=== PATIENT | female | born 1975 | race Caucasian/White ===

== ENCOUNTER 2017-07-29 05:55 | Inpatient (IN) | payer MEDICAID ==
[~2017-07-29] VITALS: Ht 144.8 cm; Wt 88.7 kg
[2017-07-29 06:23] VITALS: Ht 144.8 cm; Wt 88.7 kg
[2017-07-29] MEDS ORDERED: PREN1TAB79 PO (06:24)
[2017-07-29] MEDS ORDERED: FOLI-49 PO (06:24)
[2017-07-29] MEDS ORDERED: OXYCODONE/ASPIRIN (4.88/325) TAB PO PRN (06:30)
[2017-07-29] MEDS ORDERED: CARBOPROST 250 MCG INJ IM PRN (06:30)
[2017-07-29] MEDS ORDERED: OXYTOCIN 30 UNITS/LR 500 ML IV SCH ×2 (06:30)
[2017-07-29] MEDS ORDERED: METHYLERGONOVINE 0.2 MG INJ IM PRN (06:30)
[2017-07-29] MEDS ORDERED: LIDOCAINE 1% (MPF) 30 ML INJ INJ PRN (06:30)
[2017-07-29] MEDS ORDERED: MISOPROSTOL 200 MCG TAB PR PRN (06:30)
[2017-07-29] MEDS ORDERED: OXYTOCIN 30 UNITS/LR 500 ML IV PRN (06:30)
[2017-07-29] MEDS ORDERED: LACTATED RINGER'S 1,000 ML IV PRN (06:30)
[2017-07-29] MEDS ORDERED: BUTORPHANOL 2 MG INJ IV PRN (06:30)
[2017-07-29] MEDS ORDERED: IBUPROFEN 600 MG TAB PO PRN (06:30)
[2017-07-29] MEDS ORDERED: AMPICILLIN 2 GM/NS (PMX) 100 ML IV ONE (06:40)
[2017-07-29] MEDS: LACTATED RINGER'S 1,000 ML IV SCH ×2 (06:46→15:37)
--- NOTE | 2017-07-29 09:02 | RADRPT ---
PROCEDURE: US OB. CLINICAL INDICATION: Post dates. Large for gestational age. TECHNIQUE: Multiple sonographic images of the uterus were obtained. The images were revi ewed on a PACS workstation. COMPARISON: No prior studies are available for comparison. FINDINGS: There is a single live intrauterine gestation. heart rate is 154 beats per minute. Measurements were made in order to determine age. The results are as follows: BPD = 9.35 cm. HC = 33.55 cm. AC = 37.02 cm. FL = 7.56 cm. Estimated weight is 3193 +/- 584 grams. LMP growth percentile is 63 %. Menstrual age by ultrasound dates is 39 weeks 0 days. The estimated date of delivery is 08/05/2017. Amniotic fluid index is 5.3 cm. Position is cephalic and placenta is anterior grade II. There is no evidence for an abruption or mohinder centa previa. IMPRESSION: 1. Single live intrauterine gestation of 39 weeks 0 days menstrual age by ultrasound dates. 2. The estimated date of delivery is 08/05/2017. RPTAT: QQ .Froilan Guardado MD, MD Date Time Electronically viewed and signed by .Froilan Guardado MD, on 07/29/2017 09:02 .R/
[2017-07-29] MEDS: AMPICILLIN 1 GM/NS (PMX) 50 ML IV SCH ×4 (10:55→23:04)
[2017-07-29] MEDS: OXYTOCIN 30 UNITS/LR 500 ML IV SCH ×2 (12:07→23:59)
[2017-07-29] MEDS ORDERED: DEXTROSE 5%-LR 1,000 ML IV PRN (23:30)
[2017-07-30] MEDS: LACTATED RINGER'S 1,000 ML IV SCH ×3 (01:16→15:26)
[2017-07-30] MEDS: AMPICILLIN 1 GM/NS (PMX) 50 ML IV SCH ×5 (02:58→18:30)
[2017-07-30] MEDS ORDERED: FENTAnyl 2MCG/ML-ROPIV 0.2% 100 ML ONE ×2 (05:46→15:22)
--- NOTE | 2017-07-30 06:26 | HP ---
Date/Time of Note Date/Time of Note DATE: 07/30/17 TIME: 06:23 OB - History Hx of Present Free Text/Dictation Patient with positive was sent for induction of labor : 3 Para: 1 Therapeutic : 0 Care: Good Care Obstetrical Complications: Gestational Diabetes, Other (, Postdate elevated 1 hour PG. Repeat 3 hours showed 1 value elevated consistent with GDM. Random blood sugar normal.) Medical Complications: None Past Family/Social History * Past Medical, Surgical, Family and Obstetric Histories reviewed from chart. OB Admission Exam Physical Exam HEENT: WNL Lungs: Clear Abdomen: WNL Extremities: Normal Cervical Dilatation: 2cm Effacement: 75% Station: -2 Membranes: Intact Heart Rate: 130's Accelerations: Accelerations Present Decelerations: No Decelerations Varibility: Moderate Contractions on Admission: >10 Minutes Apart Intensity: Moderate Last 72 hourBlood Glucose Bedside Glucose - 72 Hours Test 07/30/17 01:46 Bedside Glucose 79mg/dL (70-220) Last 72 hours Lab Results CBC & BMP 07/29/17 06:45 07/29/17 21:44 Hemoglobin A1C Test 07/29/17 21:44 Hemoglobin A1c 5.9 OB Assessment/Plan Other Assessment: IUP at 40 weeks and 5 days Positive Admitted for induction On Pitocin Early labor We will continue Pitocin Anticipate GBS positive, receiving Abx CELESTINO LEVY MD Jul 30, 2017 06:26
[2017-07-30] MEDS ORDERED: OXYTOCIN 30 UNITS/LR 500 ML BAG IV ONE (07:00)
[2017-07-30] MEDS ORDERED: OXYTOCIN 30 UNITS/LR 500 ML IV SCH (14:00)
--- NOTE | 2017-07-30 15:27 | QN ---
Documentation Comment progress note patient seen and evaluated no complaints vs stable afebrile abdomen gravid nt extremity no edema no calf tenderness ve fd/100/-1 srom positive meconium fhr cat 1 toco regular ctx a/ iup at 40 plus weeks ga, admitted for post edc induction with pitocin p/ expectant vaginal delivery KARLOS BOGGS MD Jul 30, 2017 15:27
[2017-07-30] MEDS: CEFAZOLIN 2 GM/50 ML (PMX) 50 ML IV SCH ×3 (17:51→23:30)
[2017-07-30] MEDS ORDERED: morphine SULFATE/PF (10 MG/10 ML) INJ ONE (17:52)
[2017-07-30] MEDS ORDERED: PHENYLephrine (100 MCG/ML) 5ML SYG ONE ×4 (17:59→20:33)
[2017-07-30] MEDS ORDERED: ONDANSETRON 4 MG INJ ONE (17:59)
[2017-07-30] MEDS ORDERED: OXYTOCIN 10 UNIT INJ ONE (18:00)
[2017-07-30] MEDS ORDERED: FENTAnyl 50 MCG/ML VIAL ONE ×2 (18:31→18:52)
[2017-07-30] MEDS ORDERED: KETAMINE 500 MG INJ ONE (19:05)
[2017-07-30] MEDS ORDERED: METHYLENE BLUE 1% 10 ML INJ ONE (19:19)
[2017-07-30] MEDS ORDERED: MIDAZOLAM 1 MG/ML 2 ML INJ ONE (20:23)
--- NOTE | 2017-07-30 21:09 | SIPON ---
Date/Time of Note Date/Time of Note DATE: 07/30/17 TIME: 21:01 Operative Report Preoperative Diagnosis 41 yo iup at 40 wks 5 days ga, in labor, arrest in descent, positive meconium, advanced maternal age Postoperative Diagnosis Same Operation/Procedure Performed primary low transverse CD, with lower uterine laceration repair Surgeon Karlos Reeves MD machine assistant Dr. Cotton, Second assist: RENALDO KIM MD Anesthesia: spinal Estimated blood loss: other (2,000) Transfusion Required 3 units PRBC and 2 unit FFP Specimen None Grafts/Implants none Complications Laceration extention of right lower uterine incision parallel to the round ligament KARLOS BOGGS MD Jul 30, 2017 21:09
--- NOTE | 2017-07-30 21:09 | SIPON ---
Date/Time of Note Date/Time of Note DATE: 07/30/17 TIME: 21:01 Operative Report Preoperative Diagnosis 41 yo iup at 40 wks 5 days ga, in labor, arrest in descent, positive meconium, advanced maternal age Postoperative Diagnosis Same Operation/Procedure Performed primary low transverse CD, with lower uterine laceration repair Surgeon Karlos Reeves MD district administrative assistant Dr. Cotton, Second assist: RENALDO KIM MD Anesthesia: spinal Estimated blood loss: other (2,000) Transfusion Required 3 units PRBC and 2 unit FFP Specimen None Grafts/Implants none Complications Laceration extention of right lower uterine incision parallel to the round ligament KARLOS BOGGS MD Jul 30, 2017 21:09
--- NOTE | 2017-07-30 21:09 | SIPON ---
Date/Time of Note Date/Time of Note DATE: 07/30/17 TIME: 21:01 Operative Report Preoperative Diagnosis 41 yo iup at 40 wks 5 days ga, in labor, arrest in descent, positive meconium, advanced maternal age Postoperative Diagnosis Same Operation/Procedure Performed primary low transverse CD, with lower uterine laceration repair Surgeon Karlos Reeves MD ob gyn physician assistant Dr. Cotton, Second assist: RENALDO KIM MD Anesthesia: spinal Estimated blood loss: other (2,000) Transfusion Required 3 units PRBC and 2 unit FFP Specimen None Grafts/Implants none Complications Laceration extention of right lower uterine incision parallel to the round ligament KARLOS BOGGS MD Jul 30, 2017 21:09
--- NOTE | 2017-07-30 21:10 | RADRPT ---
PROCEDURE: XR Abdomen. CLINICAL INDICATION: Postoperative. Possible retained instrument. TECHNIQUE: AP abdomen x-ray. COMPARISON: None. FINDINGS: Bladder catheter is present. Linear wire overlies the parasagittal left aspect of the abdomen on cou rse of the aorta. No instruments, retained sponges or needles are identified.. There is no evidence of obstruction or ileus. There are no abnormal calcifications. The osseus structures are unremark able. IMPRESSION: Bladder catheter. Linear wire overlying the left of midline of the abdomen, likely on the patient. N o definite radiopaque foreign body to suggest a retained sponge or instrument. RPTAT: HMVK .Jeremy Holder MD, MD Date Time Electronically viewed and signed by .Jeremy Holder MD, on 07/30/2017 21:10 .K/
[2017-07-30] MEDS ORDERED: MISOPROSTOL 200 MCG TAB PR PRN (21:30)
[2017-07-30] MEDS ORDERED: LANOLIN 7 GM TUBE TOP PRN (21:30)
[2017-07-30] MEDS ORDERED: METHYLERGONOVINE 0.2 MG INJ IM PRN (21:30)
[2017-07-30] MEDS ORDERED: CARBOPROST 250 MCG INJ IM PRN (21:30)
[2017-07-30] MEDS ORDERED: OXYTOCIN 30 UNITS/LR 500 ML IV PRN (21:30)
[2017-07-30 21:38] VITALS: PULSE 97
[2017-07-30 22:00] VITALS: BP 96/73; PULSE 106; RESP 14
[2017-07-30 22:30] VITALS: BP 105/80; PULSE 124; RESP 14
[2017-07-30 23:00] VITALS: BP 93/70; PULSE 136; RESP 14
[2017-07-30] MEDS: OXYCODONE/ACETAMINOPHEN (5/325) TAB PO PRN (23:04)
[2017-07-30 23:30] VITALS: BP 99/65; PULSE 143; RESP 13
[2017-07-31] VITALS (47 sets, daily range): BP systolic 88–135; BP diastolic 66–108; PULSE 111–151; RESP 12–28
[2017-07-31] MEDS ORDERED: OXYCODONE/ACETAMINOPHEN (5/325) TAB PO PRN ×2
[2017-07-31] MEDS ORDERED: morphine 2 MG INJ IV PRN
[2017-07-31] MEDS ORDERED: ONDANSETRON 4 MG INJ IV PRN
[2017-07-31] MEDS ORDERED: DIPHENHYDRAMINE 50 MG INJ IV PRN
[2017-07-31] MEDS ORDERED: NALOXONE (0.4 MG/ML) INJ IV PRN
[2017-07-31] MEDS ORDERED: morphine 4 MG/ML VIAL IV PRN
[2017-07-31] MEDS: LACTATED RINGER'S 1,000 ML IV SCH ×4 (00:04→16:28)
--- NOTE | 2017-07-31 03:32 | CONS ---
Date/Time of Note Date/Time of Note DATE: 07/31/17 TIME: 03:13 Assessment/Plan Assessment/Plan Chief Complaint/Hosp Course This is a 41F now s/p emergent admitted to the icu floor for: #1 Acute blood loss: patient lost approximately 2000cc of blood during her OB procedure. She received 3 PRBCs and 2 FFPs with her hgb beling 8.3 post transfusion. On admission it was 12.9. At the current time I will give her 2 units PRBCs and recheck hgb after transfusion. We will continue to monitor her crane output. If her hematuria persists we will need further evaluation by ob/ urology. We will follow with you. #2Tachycardia: secondary to #1. Continue blood transfusions and volume resuscitation. #3 : continue routine care as per real estate sales manager. # dvt and gi prophylaxis. SCDs, ppi Problems: Consultation Date/Type/Reason Admit Date/Time Jul 29, 2017 at 05:55 Date of Consultation: Jul 31, 2017 Type of Consultation: medicine Reason for Consultation medical management Hx of Present Illness CC: elective induction This is a 41 year old female now s/p emergency secondary to arrest of labor. Patient was admitted for elective induction of labor and was proceeding as expected. However there was arrest in descent and an emergent low transverse was performed. There was approximately 2000cc of blood loss. Alsothere was a laceration extention of the right lower uterine incision parallel to the round ligament. She was given 3 PRBCS and 2 FFPs. Patient was subsequently transferred to the ICU for closer monitor and higher level of care. At bedside patient is currently laying in bed in no acute distress. She states she is exhausted. HR 136 with BP of 101/77. She denies any chest pain or sob. There is also dark blood noted in in her crane catheter. allergies: nkda meds: none Const: Fatigue Eyes : No pain discharge or redness or change in visual acuity ENT: No pain, sore throat, congestion, congestion, dysphagia or discharge Respiratory: No shortness of breath, cough, sputum, wheezing, or pleuritic pain Cardiovascular: No chest pain, palpitation, PND, or edema GI : Pain at surgical site status post Genitourinary: No dysuria, hematuria, flank pain , discharge or CVA tenderness Musculoskeletal: No joint pain, back pain, neck pain, restricted range of motion in neck or joints Skin: No rash, bruising or hives Neuro: No headache, dizziness, syncope, seizure, focal weakness Endocrine: No polyuria, polydipsia, temperature intolerance Psych: No hallucination, depression, anxiety or suicidal ideation Past Medical History Medical History: no pertinent history Past Surgical History x 1 (07/30/2017) Family History Significant Family History: no pertinent family hx Social History Alcohol Use: none Smoking Status: Never smoker Drug Use: none Exam/Review of Systems Vital Signs Vitals Vital Signs Date Time Temp Pulse Resp B/P Pulse Ox O2 Delivery O2 Flow Rate FiO2 07/31/17 03:00 139 16 102/76 100 Nasal Cannula 2.0 07/31/17 00:00 98.1 Intake and Output 07/30/17 07/30/17 07/31/17 15:00 23:00 07:00 Intake Total 1060.5 ml 650 ml 550 ml Output Total 775 ml 515 ml 60 ml Balance 285.5 ml 135 ml 490 ml Exam General: Patient is lying in bed states she feels tired but in no acute distress HEENT: Atraumatic, normocephalic. The pupils are equal, round and reactive. Extraocular motor are intact Neck: Supple with full range of motion. No rigidity or meningismus Chest: Nontender Lungs: Clear to auscultation bilaterally no crackles rales or wheezing Heart: Normal S1-S2, Regular rhythm and rate. No murmur, S3, or S4 Abdomen: Soft, tender to palpation around the surgical incision site of her C- section, no active bleeding noted from the surgical dressing, dressing clean dry and intact. Extremities: Normal to inspection, no edema no cyanosis Neurologic: Normal mental status, speech normal, cranial nerves II through XII are intact, motor and sensory are intact, no focal weakness Genitourinary: Patient's Crane catheter does appear to have dark blood. Results Result Diagram: 07/31/17 0030 07/29/17 2144 Results 24 hrs Laboratory Tests Test 07/30/17 06:22 07/30/17 08:28 07/30/17 12:43 07/30/17 15:01 Bedside Glucose 86 80 74 86 Test 07/31/17 00:30 Hemoglobin 8.3 #L Hematocrit 24.8 #L Medications Medications Current Medications Lactated Ringer's 1,000 ml @ 125 mls/hr Q8H IV Last administered on 07/31/17 00:04; Admin Dose 125 MLS/HR; Start 07/30/17 at 21:12 Cefazolin Sodium/ Dextrose (Ancef 2 Gm/50 ml (Pmx)) 50 ml @ 100 mls/hr Q8H IV Last administered on 07/30/17 23:30; Admin Dose 100 MLS/HR; Start 07/30/17 at 21:30; Stop 07/31/17 at 13:59 Oxycodone/ Acetaminophen (Percocet (5/ 325)) 1 tab Q4H PRN PO PAIN LEVEL 4-6; Start 07/30/17 at 21:30 Oxycodone/ Acetaminophen (Percocet (5/ 325)) 2 tab Q4H PRN PO PAIN LEVEL 7-10 Last administered on 07/30/17 23:04; Admin Dose 2 TAB; Start 07/30/17 at 21:30 Simethicone (Mylicon) 160 mg Q8H PRN PO DISTENSION/GAS/BLOATING; Start at 21:30 Senna/Docusate Sodium 1 tab 1 tab BID PO ; Start 07/31/17 at 09:00 Oxytocin/Lactated Ringer's 500 ml @ 0 mls/hr ONCE PRN IV For Hemorrhage Management; Start 07/30/17 at 21:30 Methylergonovine Maleate (Methergine) 0.2 mg ONCE PRN IM VAGINAL BLEEDING; Start 07/30/17 at 21:30 Carboprost Tromethamine (Hemabate) 250 mcg ONCE PRN IM VAGINAL BLEEDING; Start 07/30/17 at 21:30 Misoprostol (Cytotec) 1,000 mcg ONCE PRN CO VAGINAL BLEEDING; Start 07/30/17 at 21:30 Naloxone HCl (Narcan) 0.1 mg Q2M PRN IV FOR RESP RATE 8 OR LESS; Start at 00:00; Stop 07/31/17 at 17:44 Morphine Sulfate (morphine) 2 mg Q3H PRN IV PAIN LEVEL 1-5; Start 07/31/17 at 00:00; Stop 07/31/17 at 17:44 Morphine Sulfate (morphine) 4 mg Q3H PRN IV PAIN LEVEL 6-10; Start 07/31/17 at 00:00; Stop 07/31/17 at 17:44 Diphenhydramine HCl (Benadryl) 25 mg Q6H PRN IV ITCHING; Start 07/31/17 at 00: 00; Stop 07/31/17 at 17:44 Ondansetron HCl (Zofran Inj) 4 mg Q6H PRN IV NAUSEA AND/OR VOMITING Last administered on 07/31/17t 00:01; Admin Dose 4 MG; Start 07/31/17 at 00:00; Stop 07/31/17 at 17:44 GAMAL MAXWELL Jul 31, 2017 03:25
[2017-07-31] MEDS ORDERED: PANTOPRAZOLE 40 MG INJ IV SCH (04:00)
--- NOTE | 2017-07-31 05:35 | QN ---
Documentation Comment Progress note postoperative day 1 Patient seen and evaluated awake alert oriented 3 No complaints Vital signs pulse 118 respirations 16 blood pressure 100/74 pulse oximetry 96% Input 2510 output 1440 Lungs CTA bilateral CVS positive S1-S2 regular rhythm Abdomen soft appropriate tenderness no distention dressing clean dry Extremity negative edema no calf tenderness Vaginal exam no active bleeding Bishop blood-tinged Assessment status post primary delivery with lower uterine extension laceration repair, acute blood loss currently in ICU receiving her total 6 units of packed RBC Plan continue present management consider transfer to if stable and improving KARLOS BOGGS MD Jul 31, 2017 05:35
[2017-07-31] MEDS: OXYCODONE/ACETAMINOPHEN (5/325) TAB PO PRN (05:42)
[2017-07-31] MEDS ORDERED: FUROSEMIDE 20 MG INJ IV ONE (07:30)
[2017-07-31] MEDS: CEFAZOLIN 2 GM/50 ML (PMX) 50 ML IV SCH ×2 (08:30→13:20)
[2017-07-31] MEDS: SENNA/DOCUSATE NA (8.6MG/50MG) TAB PO SCH ×2 (08:31→21:32)
--- NOTE | 2017-07-31 09:44 | CONS ---
Date/Time of Note Date/Time of Note DATE: 07/31/17 TIME: 09:37 Assessment/Plan Assessment/Plan Chief Complaint/Hosp Course 41F s/o emergent was admitted to ICU for acute blood loss anemia Problems: Additional Assessment/Plan 1. Acute blood loss anemia secondary to laceration extension of right lower uterine incision - s/p PRBC - H/H stable this am, 9.8 - Hematuria improving - No signs of active bleeding - Continue monitoring H/H - laceration management per OB 2. Tachycardia - Denies any symptoms - BP stable - May be secondary to dehydration/blood loss - IVF running - Metoprolol PRN for HR >110 3. Hyperkalemia - Received dose of Lasix this am - Repeat BMP ordered for noon 4. - care as per primary team, OB 5. Disposition - Monitor in ICU - if no further episodes of bleeding and HR better controlled (<100), can be transferred out of ICU Thank you for the consultation. Please call with questions Consultation Date/Type/Reason Admit Date/Time Jul 29, 2017 at 05:55 Initial Consult Date 07/31/17 Type of Consultation: medicine Reason for Consultation anemia management 24 HR Interval Summary Constitutional: improved, other (pain at incision site, thirsty) Exam/Review of Systems Vital Signs Vitals Vital Signs Date Time Temp Pulse Resp B/P Pulse Ox O2 Delivery O2 Flow Rate FiO2 07/31/17 09:00 130 16 122/85 97 Room Air 07/31/17 08:00 98.4 07/31/17 07:00 2.0 Intake and Output 07/30/17 07/30/17 07/31/17 15:00 23:00 07:00 Intake Total 1060.5 ml 650 ml 1050 ml Output Total 775 ml 515 ml 210 ml Balance 285.5 ml 135 ml 840 ml Exam Constitutional: alert, oriented, well developed, No distress Psych: nl mood/affect Head: atraumatic, normocephalic Eyes: EOMI, PERRL, nl sclera ENMT: mucosa pink and moist Neck: non-tender, supple Respiratory: clear to auscultation, normal air movement, No crackles/rales, No wheezing Cardiovascular: other (tachycardia, normal rhythm), No diastolic murmur, No systolic murmur Gastrointestinal: other (surgical dressing, clean dry), soft, No rebound or guarding Musculoskeletal: nl extremities to inspection Extremities: normal pulses Neurological: PROFESSIONAL EMPLOYER CONSULTANT II-XII intact, nl mental status, nl speech Skin: nl turgor Lymph: nl lymph nodes Results Result Diagram: 07/31/17 0550 07/31/17 0550 Results 24 hrs Laboratory Tests Test 07/30/17 12:43 07/30/17 15:01 07/31/17 00:30 07/31/17 04:59 Bedside Glucose 74 86 Hemoglobin 8.3 #L Hematocrit 24.8 #L Lab Scanned Report BLOOD TRANSFUSION Test 07/31/17 05:50 White Blood Count 14.5 #H Red Blood Count 3.20 #L Hemoglobin 9.8 L Hematocrit 29.8 #L Mean Corpuscular Volume 93.1 Mean Corpuscular Hemoglobin 30.6 Mean Corpuscular Hemoglobin Concent 32.9 Red Cell Distribution Width 14.8 H Platelet Count 160 # Mean Platelet Volume 10.2 Neutrophils % 85.1 H Lymphocytes % 9.3 L Monocytes % 5.0 Eosinophils % 0.0 Basophils % 0.1 Nucleated Red Blood Cells % 0.0 Neutrophils # 12.3 H Lymphocytes # 1.3 Monocytes # 0.7 Eosinophils # 0.0 Basophils # 0.0 Nucleated Red Blood Cells # 0.0 Sodium Level 142 Potassium Level 5.6 H Chloride Level 110 Carbon Dioxide Level 18 L Anion Gap 20 H Blood Urea Nitrogen 15 Creatinine 1.05 H Glucose Level 135 Calcium Level 7.8 L Medications Medications Current Medications Lactated Ringer's 1,000 ml @ 125 mls/hr Q8H IV Last administered on 07/31/17 08:31; Admin Dose 125 MLS/HR; Start 07/30/17 at 21:12 Cefazolin Sodium/ Dextrose (Ancef 2 Gm/50 ml (Pmx)) 50 ml @ 100 mls/hr Q8H IV Last administered on 07/31/17 08:30; Admin Dose 100 MLS/HR; Start 07/30/17 at 21:30; Stop 07/31/17 at 13:59 Oxycodone/ Acetaminophen (Percocet (5/ 325)) 1 tab Q4H PRN PO PAIN LEVEL 4-6; Start 07/30/17 at 21:30 Oxycodone/ Acetaminophen (Percocet (5/ 325)) 2 tab Q4H PRN PO PAIN LEVEL 7-10 Last administered on 07/31/17 05:42; Admin Dose 2 TAB; Start 07/30/17 at 21:30 Simethicone (Mylicon) 160 mg Q8H PRN PO DISTENSION/GAS/BLOATING; Start at 21:30 Senna/Docusate Sodium 1 tab 1 tab BID PO Last administered on 07/31/17 08:31; Admin Dose 1 TAB; Start 07/31/17 at 09:00 Oxytocin/Lactated Ringer's 500 ml @ 0 mls/hr ONCE PRN IV For Hemorrhage Management; Start 07/30/17 at 21:30 Methylergonovine Maleate (Methergine) 0.2 mg ONCE PRN IM VAGINAL BLEEDING; Start 07/30/17 at 21:30 Carboprost Tromethamine (Hemabate) 250 mcg ONCE PRN IM VAGINAL BLEEDING; Start 07/30/17 at 21:30 Misoprostol (Cytotec) 1,000 mcg ONCE PRN IA VAGINAL BLEEDING; Start 07/30/17 at 21:30 Naloxone HCl (Narcan) 0.1 mg Q2M PRN IV FOR RESP RATE 8 OR LESS; Start at 00:00; Stop 07/31/17 at 17:44 Morphine Sulfate (morphine) 2 mg Q3H PRN IV PAIN LEVEL 1-5; Start 07/31/17 at 00:00; Stop 07/31/17 at 17:44 Morphine Sulfate (morphine) 4 mg Q3H PRN IV PAIN LEVEL 6-10; Start 07/31/17 at 00:00; Stop 07/31/17 at 17:44 Diphenhydramine HCl (Benadryl) 25 mg Q6H PRN IV ITCHING; Start 07/31/17 at 00: 00; Stop 07/31/17 at 17:44 Ondansetron HCl (Zofran Inj) 4 mg Q6H PRN IV NAUSEA AND/OR VOMITING Last administered on 07/31/17 00:01; Admin Dose 4 MG; Start 07/31/17 at 00:00; Stop 07/31/17 at 17:44 Pantoprazole (Protonix Iv) 40 mg DAILY@06 IV Last administered on 07/31/17 04: 57; Admin Dose 40 MG; Start 07/31/17 at 04:00 Metoprolol Tartrate (Lopressor) 5 mg Q6H PRN IV HR >110; Start 07/31/17 at 09: 30 ELINOR KINGSLEY MD Jul 31, 2017 09:44
[2017-07-31] MEDS: METOPROLOL 5 MG INJ IV PRN ×2 (10:10→16:27)
--- NOTE | 2017-07-31 10:41 | OPR ---
DATE OF OPERATION: 07/30/2017 PRIMARY DIAGNOSIS: A 41-year-old 3, para 2, intrauterine at 40 weeks and 5 days g estational age, in labor, arrest in descent, positive meconium, advanced maternal age. POSTOPERATIVE DIAGNOSIS: A 41-year-old 3, para 2, intrauterine at 40 weeks and 5 days gestational age, in labor, arrest in descent, positive meconium, advanced maternal age. PROCEDURE: Primary low transverse section via Pfannenstiel incision with repair of the low er uterine laceration. SURGEON: Jeremy Barrios MD. CO-SURGEONS/INTRAOPERATIVE CONSULT: Dr. Allen Reeves. TEST CENTER ADMINISTRATOR: /Jeffery Kim MD ANESTHESIA: Epidural. COMPLICATIONS: Laceration extension of the right lower uterine incision parallel to the round ligam ent. INDICATIONS: A 41-year-old 3, para 2, intrauterine at 40 weeks and 5 days gestati onal age, admitted for post-EDC induction with Pitocin, went into labor, however head arrest i n descent. FINDINGS: A viable female, 8 and 9 respectively at 1 and 5 minutes, weight 8 pounds 9 ounces, in OP presentation. Positive meconium noted. NICU team present at delivery. Normal uterus, tubes and ovaries. PROCEDURE: After explaining the risks, benefits and alternatives to patient and consent signed in c gibbs, the patient was taken to the operating room where epidural anesthesia was found to be adequate . She was then prepared and draped in normal sterile fashion in dorsal supine position with a leftw tresa tilt. A Pfannenstiel skin incision was then made with a scalpel and carried to the underlying l wanda of the fascia. The fascia was incised in the midline and the incision was extended laterally w ith Murillo scissors. The superior aspect of the fascial incision was grasped with curved clamps, elev ated and the underlying rectus muscles dissected off bluntly. Attention was then turned to the infe rior aspect of the incision which in similar fashion was grasped, tented up with curved clamps and t he rectus muscles dissected off bluntly. The rectus muscles were then in midline, periton eum identified, tented up and entered sharply with Metzenbaum scissors. The peritoneal incision was then extended superiorly relation of the bladder. The bladder blade was then inserted and th e vesicouterine peritoneum identified, grasped with pickups and entered sharply with Metzenbaum julisas sors. This incision was then extended laterally and the bladder flap created digitally. The bladde r blade was then reinserted and the lower uterine segment incised in transverse fashion with a scalp el. The uterine incision was then extended laterally. The bladder blade was removed and the 's head was delivered atraumatically. The nose and mouth were suctioned and cord clamped and cut. The placenta was then removed. The uterus exteriorized, cleared of all clots and debris. The uteri ne incision was repaired with 1-0 Monocryl in a running locked fashion. A second layer of same sutu re was used for imbrication obtaining excellent hemostasis. Due to the complexity of the case, intr aoperative consult was called with Dr. Allen Reeves for repair of the extension of laceration of t he lower uterine incision. The repair was performed by Dr. Allen Reeves. Good hemostasis was ass ured. Patient at the time, secondary to acute blood loss, received a total of 4 units of packed RBC s and 2 units of fresh frozen plasma. Methylene blue was injected via the Bishop for the integrity o f the bladder. There was no leakage. At that point, the gutters were cleared of all clots. The re ctus abdominis muscles were reapproximated with 3-0 Vicryl in interrupted fashion. The fascia was r eapproximated with 0 Vicryl in a running fashion. The subcutaneous tissue was reapproximated with 2 -0 plain gut in a running fashion. The skin was closed with absorbable monika. The patient tolera josephine the procedure well. Sponge, lap and needle counts were correct x2. For confirmation, patient a lso had pelvic x-ray. The patient was taken to ICU for continued observation secondary to acute blo od loss, a total of 2000 mL. Dictated By: JEREMY ALEXANDER/MAURICIO Conf#: [id number] DID#: [id number]
[2017-08-01] VITALS (12 sets, daily range): BP systolic 117–154; BP diastolic 67–90; PULSE 94–120; RESP 18–20
[2017-08-01] MEDS: OXYCODONE/ACETAMINOPHEN (5/325) TAB PO PRN ×3 (02:27→20:49)
[2017-08-01] MEDS: LACTATED RINGER'S 1,000 ML IV SCH ×3 (04:55→21:12)
[2017-08-01] MEDS: SENNA/DOCUSATE NA (8.6MG/50MG) TAB PO SCH ×2 (09:07→20:36)
[2017-08-01] MEDS: METOPROLOL 25 MG TAB PO SCH ×2 (11:01→20:36)
--- NOTE | 2017-08-01 13:36 | CONS ---
Date/Time of Note Date/Time of Note DATE: 08/01/17 TIME: 13:32 Assessment/Plan Assessment/Plan Chief Complaint/Hosp Course 41F s/o emergent was admitted to ICU for acute blood loss anemia Problems: Additional Assessment/Plan 1. Acute blood loss anemia secondary to laceration extension of right lower uterine incision - s/p PRBC - H/H 7.1 this am and repeat at 1500 ordered. ?if patient having any internal bleeding. No ronny bleeding appreciated - Continue monitoring H/H - laceration management per OB 2. Tachycardia - Denies any symptoms - BP stable - May be secondary to dehydration/blood loss - IVF running - Started on metoprolol PO and will wean off if possible prior to discharge - Metoprolol PRN for HR >110 3. - care as per primary team, OB 4. Disposition - patients tachycardia asymptomatic and can be monitored back in if okay with primary OB team Consultation Date/Type/Reason Admit Date/Time Jul 29, 2017 at 05:55 Initial Consult Date 07/31/17 Type of Consultation: medicine Reason for Consultation anemia, tachycardia 24 HR Interval Summary Constitutional: no complaints Exam/Review of Systems Vital Signs Vitals Vital Signs Date Time Temp Pulse Resp B/P Pulse Ox O2 Delivery O2 Flow Rate FiO2 08/01/17 12:25 107 08/01/17 12:00 98.8 18 117/77 95 07/31/17 19:15 2.0 27 07/31/17 15:03 Room Air Intake and Output 07/31/17 07/31/17 08/01/17 15:00 23:00 07:00 Intake Total 1125 ml 715 ml 450 ml Output Total 945 ml 100 ml 1100 ml Balance 180 ml 615 ml -650 ml Exam Constitutional: alert, oriented, well developed, No distress Eyes: EOMI, PERRL, nl sclera ENMT: mucosa pink and moist Neck: non-tender, supple Respiratory: clear to auscultation, normal air movement, No crackles/rales, No wheezing Cardiovascular: tachycardia, normal rhythm, No diastolic murmur, No systolic murmur Gastrointestinal: surgical dressing, clean dry, soft, tenderness lower abdominal area. 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, nl mental status, nl speech Skin: nl turgor Results Result Diagram: 08/01/17 1006 07/31/17 1110 Results 24 hrs Laboratory Tests Test 07/31/17 16:24 08/01/17 10:06 White Blood Count 15.0 H 16.1 H Red Blood Count 2.74 L 2.31 L Hemoglobin 8.6 L 7.1 L Hematocrit 24.7 L 21.2 L Mean Corpuscular Volume 90.1 91.8 Mean Corpuscular Hemoglobin 31.4 30.7 Mean Corpuscular Hemoglobin Concent 34.8 33.5 Red Cell Distribution Width 14.6 H 14.8 H Platelet Count 145 130 L Mean Platelet Volume 9.7 9.5 Neutrophils % 83.7 H Segmented Neutrophils % (Manual) 59 Band Neutrophils % (Manual) 26 H Lymphocytes % (Manual) 11 L Reactive Lymphocytes % (Manual) 1 H Monocytes % (Manual) 4 Eosinophils % 0.4 Nucleated Red Blood Cells % 0.0 0.0 Neutrophils # 13.5 H Neutrophils # (Manual) 9.4 H Band Neutrophils # 3.9 H Absolute Lymphocytes (Manual) 1.6 Reactive Lymphocytes # 0.1 H Absolute Monocytes (Manual) 0.6 Eosinophils # 0.1 Platelet Estimate NORMAL Giant Platelets 1 H Polychromasia 1+ Anisocytosis 1+ Macrocytosis 1+ Lymphocytes % 10.0 L Monocytes % 4.6 Basophils % 0.1 Lymphocytes # 1.6 Monocytes # 0.8 Basophils # 0.0 Nucleated Red Blood Cells # 0.0 Medications Medications Current Medications Lactated Ringer's (Lr) 1,000 ml @ 125 mls/hr Q8H IV Last administered on 09:07; Admin Dose 125 MLS/HR; Start 07/30/17 at 21:12 Oxycodone/ Acetaminophen (Percocet (5/ 325)) 1 tab Q4H PRN PO PAIN LEVEL 4-6; Start 07/30/17 at 21:30 Oxycodone/ Acetaminophen (Percocet (5/ 325)) 2 tab Q4H PRN PO PAIN LEVEL 7-10 Last administered on 08/01/17 09:06; Admin Dose 2 TAB; Start 07/30/17 at 21:30 Simethicone (Mylicon) 160 mg Q8H PRN PO DISTENSION/GAS/BLOATING; Start at 21:30 Senna/Docusate Sodium 1 tab 1 tab BID PO Last administered on 08/01/17 09:07; Admin Dose 1 TAB; Start 07/31/17 at 09:00 Oxytocin/Lactated Ringer's 500 ml @ 0 mls/hr ONCE PRN IV For Hemorrhage Management; Start 07/30/17 at 21:30 Methylergonovine Maleate (Methergine) 0.2 mg ONCE PRN IM VAGINAL BLEEDING; Start 07/30/17 at 21:30 Carboprost Tromethamine (Hemabate) 250 mcg ONCE PRN IM VAGINAL BLEEDING; Start 07/30/17 at 21:30 Misoprostol (Cytotec) 1,000 mcg ONCE PRN [place] VAGINAL BLEEDING; Start 07/30/17 at 21:30 Metoprolol Tartrate (Lopressor) 5 mg Q6H PRN IV HR >110 Last administered on 16:27; Admin Dose 5 MG; Start 07/31/17 at 09:30 Metoprolol Tartrate (Lopressor) 25 mg BID PO Last administered on 08/01/17 11: 01; Admin Dose 25 MG; Start 08/01/17 at 11:00 ELINOR KINGSLEY MD Aug 01, 2017 13:36
[2017-08-01] MEDS: METOPROLOL 5 MG INJ IV PRN (16:04)
[2017-08-01] MEDS ORDERED: FUROSEMIDE 20 MG INJ IV ONE (16:30)
--- NOTE | 2017-08-01 18:40 | QN ---
Documentation Comment Progress note postop day 2 Patient was seen and evaluated awake alert oriented 3 sitting in chair with no apparent distress She denies any headache nausea vomiting shortness of breath visual changes epigastric pain Vital signs blood pressure temperature 98.2F pulse 112 Lungs CTA bilateral CVS positive S1-S2 regular rhythm Abdomen dressing clean no distention nontender Extremity negative edema no calf tenderness Vaginal exam minimal bleeding/lochia H&H stable 7.2/21.5 Assessment status post primary delivery with acute intraoperative bleeding postop day 2 stable tachycardic patient received a total of 6 units of packed RBCs and 2 units of fresh frozen plasma Plan 1 unit of packed RBC with 1 unit of fresh frozen plasma has been ordered by medicine Consider to transfer patient to floor tomorrow if stable Continuity continue to monitor CBCs Remove KARLOS Trejo MD Aug 01, 2017 18:40
--- NOTE | 2017-08-01 22:31 | OPR ---
Date/Time of Note Date/Time of Note DATE: 08/01/17 TIME: 22:27 Operative Report Free Text/Dictation OPERATIVE REPORT [facility] Name: Anisa Haines Medical Date: 07/30/17 Preoperative Diagnosis: 1- Term IUP 2- Requires Postoperative Diagnosis: Same Procedures: 1- Intraoperative consult 2- Retroperitoneal dissection and repair of hematoma/bleeding of uterus 3- Ureteral dissection with repositioning 4- and laparotomy for bleeding (dictated as a separate procedure by Dr. Barrios with [facility]) Drywall Professional: Dr. Reeves Anaesthesia: General Operative findings and recommendations: The patient is a 31- year old female with who required a . She was taken to the operating room by Denis who performed a and right lateral uterine bleeding was observed. My opinion about management was requested. Surgical : Reviewed Medical: Reviewed Medications: Reviewed Allergies: Reviewed Family History: Noncontributory Name: Anisa Haines Medical Social History: Noncontributory Intraoperative findings: The patient initially had a transverse incision and was noted to have an extension of her uterine incision with bleeding. The bleeding area was addressed by opening the retroperitoneal and the ureter was visualized but was not adequately seen as it was deep and near the bleeding. For extensive exposure the right round ligament was dissected and cut with a Ligasure and the ureter visualized and dissected with a right-angle clamp and peanut as well as digitally and lateralized. The bleeding area sutured with interrupted 2-0 Monocryl suture in multiple sites without incident and the ureter which was mobilized and hemostasis was adequate. The area was rinsed with water and after no bleeding confirmed she was closed with 3-0 Monocryl suture on the rectus and the fascia closed with continuous 0- Vicryl suture. The skin was addressed by Dr. Barrios and Judy and his product safety technical assistant. The patient was stable and tolerated the procedure well. Nilesh Reeves M.D. Preoperative Diagnosis as above Postoperative Diagnosis as above Operation/Procedure Performed as above Surgeon see signature line Publicity Director as above Anesthesia Type: general, MAC Estimated Blood Loss: other Transfusion none Specimen none Grafts/Implants none Tubes/Drains as above Complications none Procedure Description as above NILESH REEVES MD Aug 01, 2017 22:31
--- NOTE | 2017-08-01 22:31 | OPR ---
Date/Time of Note Date/Time of Note DATE: 08/01/17 TIME: 22:27 Operative Report Free Text/Dictation OPERATIVE REPORT [facility] Name: Anisa Haines Medical Date: 07/30/17 Preoperative Diagnosis: 1- Term IUP 2- Requires Postoperative Diagnosis: Same Procedures: 1- Intraoperative consult 2- Retroperitoneal dissection and repair of hematoma/bleeding of uterus 3- Ureteral dissection with repositioning 4- and laparotomy for bleeding (dictated as a separate procedure by Dr. Barrios with [facility]) Brake Linings Coater: Dr. Reeves Anaesthesia: General Operative findings and recommendations: The patient is a 31- year old female with who required a . She was taken to the operating room by Denis who performed a and right lateral uterine bleeding was observed. My opinion about management was requested. Surgical : Reviewed Medical: Reviewed Medications: Reviewed Allergies: Reviewed Family History: Noncontributory Name: Anisa Haines Medical Social History: Noncontributory Intraoperative findings: The patient initially had a transverse incision and was noted to have an extension of her uterine incision with bleeding. The bleeding area was addressed by opening the retroperitoneal and the ureter was visualized but was not adequately seen as it was deep and near the bleeding. For extensive exposure the right round ligament was dissected and cut with a Ligasure and the ureter visualized and dissected with a right-angle clamp and peanut as well as digitally and lateralized. The bleeding area sutured with interrupted 2-0 Monocryl suture in multiple sites without incident and the ureter which was mobilized and hemostasis was adequate. The area was rinsed with water and after no bleeding confirmed she was closed with 3-0 Monocryl suture on the rectus and the fascia closed with continuous 0- Vicryl suture. The skin was addressed by Dr. Barrios and Judy and his electrician's assistant. The patient was stable and tolerated the procedure well. Nilesh Reeves M.D. Preoperative Diagnosis as above Postoperative Diagnosis as above Operation/Procedure Performed as above Surgeon see signature line Condominium Manager as above Anesthesia Type: general, MAC Estimated Blood Loss: other Transfusion none Specimen none Grafts/Implants none Tubes/Drains as above Complications none Procedure Description as above NILESH REEVES MD Aug 01, 2017 22:31
--- NOTE | 2017-08-01 22:31 | OPR ---
Date/Time of Note Date/Time of Note DATE: 08/01/17 TIME: 22:27 Operative Report Free Text/Dictation OPERATIVE REPORT [facility] Name: Anisa Haines Medical Date: 07/30/17 Preoperative Diagnosis: 1- Term IUP 2- Requires Postoperative Diagnosis: Same Procedures: 1- Intraoperative consult 2- Retroperitoneal dissection and repair of hematoma/bleeding of uterus 3- Ureteral dissection with repositioning 4- and laparotomy for bleeding (dictated as a separate procedure by Dr. Barrios with Socrates) Steel Erector: Dr. Reeves Anaesthesia: General Operative findings and recommendations: The patient is a 31- year old female with who required a . She was taken to the operating room by Denis who performed a and right lateral uterine bleeding was observed. My opinion about management was requested. Surgical : Reviewed Medical: Reviewed Medications: Reviewed Allergies: Reviewed Family History: Noncontributory Name: Anisa Haines Medical Social History: Noncontributory Intraoperative findings: The patient initially had a transverse incision and was noted to have an extension of her uterine incision with bleeding. The bleeding area was addressed by opening the retroperitoneal and the ureter was visualized but was not adequately seen as it was deep and near the bleeding. For extensive exposure the right round ligament was dissected and cut with a Ligasure and the ureter visualized and dissected with a right-angle clamp and peanut as well as digitally and lateralized. The bleeding area sutured with interrupted 2-0 Monocryl suture in multiple sites without incident and the ureter which was mobilized and hemostasis was adequate. The area was rinsed with water and after no bleeding confirmed she was closed with 3-0 Monocryl suture on the rectus and the fascia closed with continuous 0- Vicryl suture. The skin was addressed by Dr. Barrios and Judy and his faculty research assistant. The patient was stable and tolerated the procedure well. Nilesh Reeves M.D. Preoperative Diagnosis as above Postoperative Diagnosis as above Operation/Procedure Performed as above Surgeon see signature line Purchasing Supervisor as above Anesthesia Type: general, MAC Estimated Blood Loss: other Transfusion none Specimen none Grafts/Implants none Tubes/Drains as above Complications none Procedure Description as above NILESH REEVES MD Aug 01, 2017 22:31
[2017-08-02] VITALS (10 sets, daily range): BP systolic 121–140; BP diastolic 68–85; PULSE 83–110; RESP 18–20
[2017-08-02] MEDS: LACTATED RINGER'S 1,000 ML IV SCH ×2 (05:12→13:12)
--- NOTE | 2017-08-02 09:56 | QN ---
Documentation Comment Progress note postoperative day 3 Patient was seen and evaluated awake alert oriented 3 Patient is tolerating diet positive flatulence Bishop is clear Patient denies headache nausea vomiting shortness of breath visual changes palpitations Vital signs temperature 98.4F pulse 96 respiration 18 blood pressure 125/75 Lungs CTA bilateral CVS positive S1-S2 regular rhythm Abdomen clean dry and intact no distention uterine fundus firm below umbilicus nontender Extremity negative edema no calf tenderness Vaginal exam no active vaginal bleeding H&H stable Assessment status post primary postop day 3 received blood products secondary to acute blood loss currently stable afebrile Plan discontinue Bishop Patient may shower Consider to transfer to floor if cleared by medicine KARLOS BOGGS MD Aug 02, 2017 09:56
[2017-08-02] MEDS: METOPROLOL 25 MG TAB PO SCH (10:03)
[2017-08-02] MEDS: SENNA/DOCUSATE NA (8.6MG/50MG) TAB PO SCH ×2 (10:03→22:58)
[2017-08-02] MEDS: OXYCODONE/ACETAMINOPHEN (5/325) TAB PO PRN (10:20)
--- NOTE | 2017-08-02 13:39 | CONS ---
Date/Time of Note Date/Time of Note DATE: 08/02/17 TIME: 13:36 Assessment/Plan Assessment/Plan Chief Complaint/Hosp Course 41F s/o emergent was admitted to ICU for acute blood loss anemia Problems: Additional Assessment/Plan 1. Acute blood loss anemia secondary to laceration extension of right lower uterine incision - s/p PRBC - H/H 7.3 this am and ordered from 2 units of PRBC. Patient passing clots and examined by L&D nursing and states patient stable and normal for clots. - Continue monitoring H/H - laceration management per OB 2. Tachycardia- resolved - Denies any symptoms - BP stable - secondary to blood loss - Started on metoprolol PO - Metoprolol PRN for HR >110 3. - care as per primary team, OB 4. Disposition - Patient HR better controlled and patient cleared for transfer back to Consultation Date/Type/Reason Admit Date/Time Jul 29, 2017 at 05:55 Initial Consult Date 07/31/17 Type of Consultation: medicine Reason for Consultation Blood loss anemia, tachycardia 24 HR Interval Summary Constitutional: no complaints Exam/Review of Systems Vital Signs Vitals Vital Signs Date Time Temp Pulse Resp B/P Pulse Ox O2 Delivery O2 Flow Rate FiO2 08/02/17 12:21 100 08/02/17 11: 98.0 18 140/72 99 08/02/17 01:30 21 08/01/17 09:15 07/31/17 15:03 Room Air Intake and Output 08/01/17 08/01/17 08/02/17 15:00 23:00 07:00 Intake Total 1200 ml Output Total 1450 ml Balance -250 ml Exam Constitutional: alert, oriented, well developed, No distress Eyes: EOMI, PERRL, nl sclera ENMT: mucosa pink and moist Neck: non-tender, supple Respiratory: clear to auscultation, normal air movement, No crackles/rales, No wheezing Cardiovascular: tachycardia, normal rhythm, No diastolic murmur, No systolic murmur Gastrointestinal: soft, slightly distended, nontender lower abdominal area. 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, nl mental status, nl speech Skin: nl turgor Results Result Diagram: 08/02/17 0550 08/02/17 0550 Results 24 hrs Laboratory Tests Test 08/01/17 14:53 08/02/17 05:35 08/02/17 05:50 White Blood Count 15.4 H 15.6 H Red Blood Count 2.31 L 2.37 L Hemoglobin 7.2 L 7.3 L Hematocrit 21.5 L 21.5 L Mean Corpuscular Volume 93.1 90.7 Mean Corpuscular Hemoglobin 31.2 30.8 Mean Corpuscular Hemoglobin Concent 33.5 34.0 Red Cell Distribution Width 14.8 H 14.6 H Platelet Count 147 163 Mean Platelet Volume 9.7 9.6 Neutrophils % 82.1 H 81.1 H Lymphocytes % 11.3 L 11.8 L Monocytes % 4.6 4.0 Eosinophils % 0.5 1.0 Basophils % 0.1 0.2 Nucleated Red Blood Cells % 0.0 0.0 Neutrophils # 12.6 H 12.7 H Lymphocytes # 1.7 1.9 Monocytes # 0.7 0.6 Eosinophils # 0.1 0.2 Basophils # 0.0 0.0 Nucleated Red Blood Cells # 0.0 0.0 Lab Scanned Report BLOOD TRANSFUSION Prothrombin Time 13.3 Prothrombin Time Ratio 1.0 INR International Normalized Ratio 1.01 Activated Partial Thromboplast Time 41.6 H Sodium Level 139 Potassium Level 3.6 Chloride Level 107 Carbon Dioxide Level 26 Anion Gap 10 Blood Urea Nitrogen 8 Creatinine 0.61 Glucose Level 83 Calcium Level 7.6 L Phosphorus Level 3.9 Albumin 1.9 L Medications Medications Current Medications Lactated Ringer's (Lr) 1,000 ml @ 125 mls/hr Q8H IV Last administered on 09:07; Admin Dose 125 MLS/HR; Start 07/30/17 at 21:12 Oxycodone/ Acetaminophen (Percocet (5/ 325)) 1 tab Q4H PRN PO PAIN LEVEL 4-6 Last administered on 08/02/17 10:20; Admin Dose 1 TAB; Start 07/30/17 at 21:30 Oxycodone/ Acetaminophen (Percocet (5/ 325)) 2 tab Q4H PRN PO PAIN LEVEL 7-10 Last administered on 08/01/17 09:06; Admin Dose 2 TAB; Start 07/30/17 at 21:30 Simethicone (Mylicon) 160 mg Q8H PRN PO DISTENSION/GAS/BLOATING; Start at 21:30 Senna/Docusate Sodium 1 tab 1 tab BID PO Last administered on 08/02/17 10:03; Admin Dose 1 TAB; Start 07/31/17 at 09:00 Oxytocin/Lactated Ringer's 500 ml @ 0 mls/hr ONCE PRN IV For Hemorrhage Management; Start 07/30/17 at 21:30 Methylergonovine Maleate (Methergine) 0.2 mg ONCE PRN IM VAGINAL BLEEDING; Start 07/30/17 at 21:30 Carboprost Tromethamine (Hemabate) 250 mcg ONCE PRN IM VAGINAL BLEEDING; Start 07/30/17 at 21:30 Misoprostol (Cytotec) 1,000 mcg ONCE PRN [place] VAGINAL BLEEDING; Start 07/30/17 at 21:30 Metoprolol Tartrate (Lopressor) 5 mg Q6H PRN IV HR >110 Last administered on 16:04; Admin Dose 5 MG; Start 07/31/17 at 09:30 Metoprolol Tartrate (Lopressor) 25 mg BID PO Last administered on 08/02/17 10: 03; Admin Dose 25 MG; Start 08/01/17 at 11:00 Ferrous Sulfate (Ferrous Sulfate (Ec)) 325 mg TID PO ; Start 08/02/17 at 13:00 ELINOR KINGSLEY MD Aug 02, 2017 13:39
[2017-08-02] MEDS: FERROUS SULFATE (EC) 325 MG TAB PO SCH ×2 (15:40→22:58)
[2017-08-03] VITALS: BP 138/80; PULSE 90; RESP 20
[2017-08-03] MEDS: METOPROLOL 25 MG TAB PO SCH ×3 (00:03→21:10)
[2017-08-03 04:00] VITALS: BP 121/69; PULSE 64; RESP 20
[2017-08-03 08:20] VITALS: BP 134/91; PULSE 70; RESP 17
[2017-08-03] MEDS: FERROUS SULFATE (EC) 325 MG TAB PO SCH ×3 (09:15→21:10)
[2017-08-03] MEDS: SENNA/DOCUSATE NA (8.6MG/50MG) TAB PO SCH ×2 (09:15→21:10)
[2017-08-03] MEDS: OXYCODONE/ACETAMINOPHEN (5/325) TAB PO PRN (09:16)
--- NOTE | 2017-08-03 11:14 | QN ---
Documentation Comment Progress note postoperative day #4 Patient was seen and evaluated awake alert oriented 3 positive ambulation positive voiding tolerating diet positive bowel movement denies any headache nausea vomiting shortness of breath visual changes epigastric pain Vital signs stable afebrile Abdomen clean dry and intact negative distention nontender uterine fundus firm below umbilicus Extremity negative edema no calf tenderness H&H 10.5/30.7 Assessment status post primary low transverse delivery with blood transfusion secondary to acute blood loss Currently stable afebrile Plan consider discharge home tomorrow if cleared by medicine KARLOS BOGGS MD Aug 03, 2017 11:14
[2017-08-03 11:15] VITALS: BP 144/80; PULSE 66; RESP 17
--- NOTE | 2017-08-03 16:23 | PN ---
Date/Time of Note Date/Time of Note DATE: 08/03/17 TIME: 16:22 Assessment/Plan VTE Prophylaxis VTE Prophylaxis Intervention: ambulation Lines/Catheters IV [facility]from [facility] Saline Lock Urinary Cath still in place: No (DC'd per MD's order) Assessment/Plan Chief Complaint/Hosp Course 1. Acute blood loss anemia secondary to laceration extension of right lower uterine incision - s/p PRBC - H/H stable. - Continue monitoring H/H - laceration management per OB 2. Tachycardia- resolved - Denies any symptoms - BP stable - secondary to blood loss - Started on metoprolol PO, titrating down - Metoprolol PRN for HR >110 3. - care as per primary team, OB 4. Disposition - Patient HR better controlled, titrate down on metoprolol, can likely be DC'd without BB if stable. Problems: Subjective 24 Hr Interval Summary Free Text/Dictation no acute issues, feels great Exam/Review of Systems Vital Signs Vitals Vital Signs Date Time Temp Pulse Resp B/P Pulse Ox O2 Delivery O2 Flow Rate FiO2 08/03/17 11:15 66 17 144/80 08/03/17 08:20 98.3 Room Air 08/03/17 02:19 21 08/02/17 20:36 100 08/01/17 09:15 Intake and Output 08/02/17 08/02/17 08/03/17 14:59 22:59 06:59 Intake Total 950 ml Balance 950 ml Exam Physical exam General: Patient is laying in bed and answers questions appropriately Mentation: Patient is alert and oriented 4, Head: Normocephalic atraumatic Eyes: EOMI, pupils reactive to light Neck: Supple, nontender, midline Respiratory: Clear to auscultation bilaterally Cardiovascular: regular rate, no obvious murmurs Gastrointestinal: mildly tender to palpation, bowel sounds heard. Neurological: Moves all extremities spontaneously Results Result Diagram: 08/03/17 0910 08/02/17 0550 Results 24 hrs Laboratory Tests Test 08/03/17 06:32 08/03/17 09:10 Lab Scanned Report BLOOD TRANSFUSION White Blood Count 11.8 #H Red Blood Count 3.41 #L Hemoglobin 10.5 #L Hematocrit 30.7 #L Mean Corpuscular Volume 90.0 Mean Corpuscular Hemoglobin 30.8 Mean Corpuscular Hemoglobin Concent 34.2 Red Cell Distribution Width 15.2 H Platelet Count 237 # Mean Platelet Volume 8.7 Neutrophils % 73.8 Lymphocytes % 15.5 Monocytes % 4.6 Eosinophils % 1.6 Basophils % 0.4 Nucleated Red Blood Cells % 0.0 Neutrophils # 8.7 H Lymphocytes # 1.8 Monocytes # 0.5 Eosinophils # 0.2 Basophils # 0.1 Nucleated Red Blood Cells # 0.0 Medications Medications Current Medications Oxycodone/ Acetaminophen (Percocet (5/ 325)) 1 tab Q4H PRN PO PAIN LEVEL 4-6 Last administered on 08/02/17 10:20; Admin Dose 1 TAB; Start 07/30/17 at 21:30 Oxycodone/ Acetaminophen (Percocet (5/ 325)) 2 tab Q4H PRN PO PAIN LEVEL 7-10 Last administered on 08/03/17 09:16; Admin Dose 2 TAB; Start 07/30/17 at 21:30 Simethicone (Mylicon) 160 mg Q8H PRN PO DISTENSION/GAS/BLOATING; Start at 21:30 Senna/Docusate Sodium 1 tab 1 tab BID PO Last administered on 08/03/17 09:15; Admin Dose 1 TAB; Start 07/31/17 at 09:00 Oxytocin/Lactated Ringer's 500 ml @ 0 mls/hr ONCE PRN IV For Hemorrhage Management; Start 07/30/17 at 21:30 Methylergonovine Maleate (Methergine) 0.2 mg ONCE PRN IM VAGINAL BLEEDING; Start 07/30/17 at 21:30 Carboprost Tromethamine (Hemabate) 250 mcg ONCE PRN IM VAGINAL BLEEDING; Start 07/30/17 at 21:30 Misoprostol (Cytotec) 1,000 mcg ONCE PRN [place] VAGINAL BLEEDING; Start 07/30/17 at 21:30 Ferrous Sulfate (Ferrous Sulfate (Ec)) 325 mg TID PO Last administered on 12:44; Admin Dose 325 MG; Start 08/02/17 at 13:00 Metoprolol Tartrate (Lopressor) 12.5 mg BID PO ; Start 08/03/17 at 21:00 AYESHA ZEPEDA Aug 03, 2017 16:23
[2017-08-03 20:05] VITALS: BP 140/81; PULSE 81; RESP 18
[2017-08-04 04:15] VITALS: BP 124/78; PULSE 77; RESP 18
[2017-08-04] MEDS: OXYCODONE/ACETAMINOPHEN (5/325) TAB PO PRN (06:29)
[2017-08-04 08:00] VITALS: BP 110/61; PULSE 79; RESP 16
[2017-08-04] MEDS: SENNA/DOCUSATE NA (8.6MG/50MG) TAB PO SCH (09:22)
[2017-08-04] MEDS: FERROUS SULFATE (EC) 325 MG TAB PO SCH ×2 (09:22→13:32)
[2017-08-04] MEDS: METOPROLOL 25 MG TAB PO SCH (09:23)
[2017-08-04 12:00] VITALS: BP 135/84; PULSE 74; RESP 17
--- NOTE | 2017-08-04 15:04 | PN ---
Date/Time of Note Date/Time of Note DATE: 08/04/17 TIME: 15:02 Assessment/Plan VTE Prophylaxis VTE Prophylaxis Intervention: ambulation Lines/Catheters IV C[facility]ter Type ([facility] Saline Lock Urinary Cath still in place: No (DC'd per MD's order) Assessment/Plan Chief Complaint/Hosp Course 1. Acute blood loss anemia secondary to laceration extension of right lower uterine incision - s/p PRBC - H/H stable. - f/u outpatient for hgb redraw - laceration management per OB 2. Tachycardia- resolved - Denies any symptoms - BP stable - secondary to blood loss - stopped metoprolol 3. - care as per primary team, OB 4. Disposition - Patient HR controlled and within normal limits, patient is safe from internal medicine standpoint for DC home to follow up with primary care provider regarding hgb and blood pressure/heart rate issues. Problems: Subjective 24 Hr Interval Summary Free Text/Dictation no acute complaints, breast feeding baby at bedside Exam/Review of Systems Vital Signs Vitals Vital Signs Date Time Temp Pulse Resp B/P Pulse Ox O2 Delivery O2 Flow Rate FiO2 08/04/17 12:00 98.0 74 17 135/84 08/04/17 08:00 Room Air 08/03/17 02:19 21 08/02/17 20:36 100 08/01/17 09:15 Exam Physical exam General: Patient is laying in bed and answers questions appropriately Mentation: Patient is alert and oriented 4, Head: Normocephalic atraumatic Eyes: EOMI, pupils reactive to light Neck: Supple, nontender, midline Respiratory: Clear to auscultation bilaterally Cardiovascular: regular rate, no obvious murmurs Gastrointestinal: mildly tender to palpation, bowel sounds heard. Neurological: Moves all extremities spontaneously Results Result Diagram: 08/04/17 1036 08/02/17 0550 Results 24 hrs Laboratory Tests Test 08/04/17 10:36 White Blood Count 10.9 H Red Blood Count 3.45 L Hemoglobin 10.1 L Hematocrit 31.6 L Mean Corpuscular Volume 91.6 Mean Corpuscular Hemoglobin 29.3 Mean Corpuscular Hemoglobin Concent 32.0 Red Cell Distribution Width 15.2 H Platelet Count 281 Mean Platelet Volume 8.4 Neutrophils % 66.7 Lymphocytes % 18.5 Monocytes % 6.2 Eosinophils % 2.6 Basophils % 0.5 Nucleated Red Blood Cells % 0.0 Neutrophils # 7.3 Lymphocytes # 2.0 Monocytes # 0.7 Eosinophils # 0.3 Basophils # 0.1 Nucleated Red Blood Cells # 0.0 Medications Medications Current Medications Oxycodone/ Acetaminophen (Percocet (5/ 325)) 1 tab Q4H PRN PO PAIN LEVEL 4-6 Last administered on 08/02/17 10:20; Admin Dose 1 TAB; Start 07/30/17 at 21:30 Oxycodone/ Acetaminophen (Percocet (5/ 325)) 2 tab Q4H PRN PO PAIN LEVEL 7-10 Last administered on 08/04/17 06:29; Admin Dose 2 TAB; Start 07/30/17 at 21:30 Simethicone (Mylicon) 160 mg Q8H PRN PO DISTENSION/GAS/BLOATING; Start at 21:30 Senna/Docusate Sodium 1 tab 1 tab BID PO Last administered on 08/04/17 09:22; Admin Dose 1 TAB; Start 07/31/17 at 09:00 Oxytocin/Lactated Ringer's 500 ml @ 0 mls/hr ONCE PRN IV For Hemorrhage Management; Start 07/30/17 at 21:30 Methylergonovine Maleate (Methergine) 0.2 mg ONCE PRN IM VAGINAL BLEEDING; Start 07/30/17 at 21:30 Carboprost Tromethamine (Hemabate) 250 mcg ONCE PRN IM VAGINAL BLEEDING; Start 07/30/17 at 21:30 Misoprostol (Cytotec) 1,000 mcg ONCE PRN [place] VAGINAL BLEEDING; Start 07/30/17 at 21:30 Ferrous Sulfate (Ferrous Sulfate (Ec)) 325 mg TID PO Last administered on 13:32; Admin Dose 325 MG; Start 08/02/17 at 13:00 AYESHA ZEPEAD Aug 04, 2017 15:04
[2017-08-04 16:00] VITALS: BP 123/78; PULSE 83; RESP 17
--- NOTE | 2017-08-04 18:15 | QN ---
Documentation Comment Progress note postop day 5 Patient seen and evaluated awake alert oriented 3 denies any headache nausea vomiting shortness of breath visual changes epigastric pain palpitations Vital signs stable afebrile Abdomen soft nontender clean dry and intact uterine fundus firm below umbilicus Extremity negative edema no calf tenderness Vaginal exam no active bleeding Assessment status post primary postop day 5 received blood transfusion intraoperatively and secondary to acute blood loss currently stable afebrile H&H stable Plan discharge home today Follow-up in the office in 2 weeks KARLOS BOGGS MD Aug 04, 2017 18:15
--- NOTE | 2017-08-04 18:19 | PD.PPDC ---
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
--- NOTE | 2017-08-04 18:19 | PD.PPDC ---
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
--- NOTE | 2017-08-04 18:19 | PD.PPDC ---
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
--- NOTE | 2017-08-05 02:44 | DS ---
DATE OF ADMISSION: 07/29/2017 DATE OF DISCHARGE: 08/04/2017 PRIMARY DIAGNOSIS: A 41-year-old, 3, para 2, intrauterine at 40 weeks and 5 days gestational age, in labor, arrest in descent, positive meconium, advanced maternal age. PROCEDURE: Primary low transverse delivery via Pfannenstiel incision with repair of the lo wer uterine laceration. CONDITION ON DISCHARGE: Stable. ACTIVITY: None per vagina, no heavy lifting x6 weeks. DIET: Regular. MEDICATIONS ON DISCHARGE: 1. Motrin. 2. Percocet. 3. Iron. 4. Colace. DISCHARGE SUMMARY: Ms. Anisa Haines is a 41-year-old, 3, para 3, status post primary low tr ansverse delivery with lower uterine laceration repair on 07/30/2017. She received blood p roducts intraoperatively secondary to acute blood loss. After surgery was completed, she was sent t o ICU for further close monitoring. The patient received blood products . She currently has no vaginal bleeding. She is tolerating diet, positive flatulence, positive bowel movement. She denies any headache, nausea, vomiting, shortness of breath. She will be discharged on postop day 5 and follow up in the office in 2 weeks for /post OP care. Her incision is clean, dry, in tact. Dictated By: KARLOS ALEXANDER/MAURICIO Conf#: [id number] DID#: [id number]
== END 2017-08-04 19:59 | disposition home or self-care (01) | DRG 765 ==
LOC: L-D 05:55 → PP1 07-30 19:26 → L-D 07-30 19:30 → ICU 07-30 21:35 → TEL 07-31 14:49 → PP1 08-02 20:51
PROVIDERS: ADMIT Obstetrics & Gynecology; ATTEND Obstetrics & Gynecology
PROC: 0TN60ZZ Release Right Ureter, Open Approach (ICD-10-PCS; 2017-07-30)
PROC: 0UQ90ZZ Repair Uterus, Open Approach (ICD-10-PCS; 2017-07-30)
PROC: 30243L1 Transfusion of Nonautologous Fresh Plasma into Central Vein, Percutaneous Approach (ICD-10-PCS; 2017-07-30)
PROC: 30243N1 Transfusion of Nonautologous Red Blood Cells into Central Vein, Percutaneous Approach (ICD-10-PCS; 2017-07-30)
PROC: 30243R1 Transfusion of Nonautologous Platelets into Central Vein, Percutaneous Approach (ICD-10-PCS; 2017-07-30)
PROC: 10D00Z1 Extraction of Products of Conception, Low, Open Approach (ICD-10-PCS; principal; 2017-07-30 17:30)
DX: O48.0 Post-term pregnancy (principal); D62 Acute posthemorrhagic anemia; O62.1 Secondary uterine inertia; Z37.0 Single live birth; Z3A.40 40 weeks gestation of pregnancy; O99.824 Streptococcus B carrier state complicating childbirth; O77.0 Labor and delivery complicated by meconium in amniotic fluid; E87.5 Hyperkalemia; O71.81 Laceration of uterus, not elsewhere classified; O99.02 Anemia complicating childbirth; O99.285 Endocrine, nutritional and metabolic diseases complicating the puerperium
CPT/HCPCS: 36430; 62319; 74000; 76815; 80048; 80069; 82947; 82962; 83036; 85014; 85018; 85025; 85610; 85730; 86592; 86850; 86900; 86901; 86920; 87081; 87340; J1940; C9113; J0290; J0690; J2210; J2250; J2270; J2274; J2370; J2405; J2590; J3010; J7120; P9016; P9035; P9059